=== PATIENT | female | born 2000 | race Caucasian/White ===

== ENCOUNTER 2018-09-11 22:33 | Emergency (ER) | payer BC ==
[~2018-09-11] VITALS: Ht 180.3 cm; Wt 127.0 kg
[2018-09-11] MEDS ORDERED: FAMC500 PO (23:21)
== END 2018-09-11 23:38 | disposition home or self-care (01) ==
LOC: ER 22:33
DX: G51.0 Bell's palsy (principal)
CPT/HCPCS: 99283

== ENCOUNTER → 2020-08-07 | Outpatient (CLI) | payer BC ==
[~2020-08-07] MED LIST: FAMC500 PO
== END | disposition home or self-care (01) ==
LOC: LAB SHORT 16:52 → LAB 16:52
DX: J20.9 Acute bronchitis, unspecified (principal); Z20.828 Contact with and (suspected) exposure to other viral communicable diseases
CPT/HCPCS: U0003

== ENCOUNTER → 2022-05-24 | Outpatient (CLI) | payer BC | END | disposition home or self-care (01) | LOC: LAB SHORT 11:20 → LAB 11:20 | DX: A08.39 Other viral enteritis (principal) | CPT/HCPCS: 87086 ==

== ENCOUNTER 2022-06-30 12:57 | Emergency (ER) | payer BC, OTHER ==
[~2022-06-30] VITALS: Ht 180.3 cm; Wt 120.2 kg
[2022-06-30 14:20] LABS: BASOPHILS ABSOLUTE AUTO 0.03 K/mm3 (0.00-0.23); BASOPHILS PERCENT AUTO 0 % (0-2); EOSINOPHILS ABSOLUTE AUTO 0.19 K/mm3 (0.00-0.68); EOSINOPHILS PERCENT AUTO 2 % (0-6); Hematocrit 38.5 % (33.0-51.0); Hemoglobin 13.5 g/dL (11.5-16.0); IMMATURE GRAN ABSOLUTE AUTO 0.03 K/mm3 (0.00-0.10); IMMATURE GRAN PERCENT AUTO 0 % (0-1); LYMPHOCYTES ABSOLUTE AUTO 1.79 K/mm3 (0.84-5.20); LYMPHOCYTES PERCENT AUTO 19 % (21-46); MONOCYTES ABSOLUTE AUTO 0.79 K/mm3 (0.16-1.47); MONOCYTES PERCENT AUTO 9 % (4-13); Mean Corpuscular HGB 30.7 pg (26.0-34.0); Mean Corpuscular HGB Conc 35.1 g/dL (31.5-36.5); Mean Corpuscular Volume 88 fL (80-100); NEUTROPHILS ABSOLUTE AUTO 6.39 K/mm3 (1.96-9.15); NEUTROPHILS PERCENT AUTO 69 % (41-73); Platelet Count 180 K/mm3 (150-400); RDW Coefficient Variation 12.2 % (11.7-14.2); RDW Standard Deviation 39.4 fL (35.1-46.3); White Blood Cell Count 9.22 K/mm3 (4.00-11.30)
[2022-06-30 14:42] LABS: Albumin, Blood 3.4 g/dL (3.4-5.0); Albumin/Globulin Ratio 1.1 (0.8-1.8); Bilirubin, Total 0.3 mg/dL (0.1-1.0); Bun/Creatinine Ratio 11.5 (12.0-20.0); Calcium, Blood 8.7 mg/dL (8.5-10.1); Creatinine, Blood 0.61 mg/dL (0.40-1.00); Globulin, Blood 3.2 g/dL (2.2-4.0); Potassium, Blood 3.7 mmol/L (3.5-5.5); Total Protein, Blood 6.6 g/dL (6.4-8.2)
[2022-06-30 15:39] LABS: Source, Urine Clean Catch
[2022-06-30 16:05] LABS: Appearance, Urine Cloudy (Clear); Bilirubin, Urine Neg (Neg); Blood, Urine 5+ (Neg); Color, Urine Red (P-Yellow); Glucose Qualitative, Urine Neg (Neg); Ketones, Urine Neg (Neg); Leukocyte Esterase, Urine 2+ (Neg); Nitrite, Urine Neg (Neg); Protein, Urine 3+ (Neg); Urobilinogen, Urine 1+ (Normal)
[2022-06-30 17:00] LABS: Bacteria Few /hpf; Red Blood Cells, Urine TNTC /hpf (0-2); Squamous Epithelial Cells Few /hpf (Few)
== END 2022-06-30 16:50 | disposition home or self-care (01) ==
LOC: ER 12:57
PROVIDERS: Physician Assistant
DX: O20.0 Threatened abortion (principal); Z3A.11 11 weeks gestation of pregnancy; Z79.899 Other long term (current) drug therapy
CPT/HCPCS: 36415; 76801; 80053; 81001; 84702; 85025; 86900; 86901; 87086; 99284-25

== ENCOUNTER → 2022-07-07 | Outpatient (CLI) | payer BC, OTHER ==
[2022-07-09 01:10] LABS: CHLAMYDIA TRACHOMATIS, NAA Negative (Negative)
== END | disposition home or self-care (01) ==
LOC: LAB 10:51 → LAB SHORT 10:51
PROVIDERS: Advanced Practice Midwife
DX: Z01.419 Encounter for gynecological examination (general) (routine) without abnormal findings (principal); Z11.3 Encounter for screening for infections with a predominantly sexual mode of transmission
CPT/HCPCS: 87491; 87591; G0123

== ENCOUNTER → 2022-08-03 | Outpatient (CLI) | payer BC, OTHER ==
[2022-08-03 14:24] LABS: Source, Urine Clean Catch
[2022-08-03 15:28] LABS: Appearance, Urine Clear (Clear); Bilirubin, Urine Neg (Neg); Blood, Urine Neg (Neg); Color, Urine Amber (P-Yellow); Glucose Qualitative, Urine Neg (Neg); Ketones, Urine Neg (Neg); Leukocyte Esterase, Urine 2+ (Neg); Nitrite, Urine Neg (Neg); Protein, Urine 1+ (Neg); Urobilinogen, Urine 1+ (Normal)
[2022-08-03 15:42] LABS: Bacteria Mod /hpf; Mucus Light (0-Heavy); Red Blood Cells, Urine 0-2 /hpf (0-2); Squamous Epithelial Cells Few /hpf (Few); Yeast/Fungi Urine Few /hpf
== END | disposition home or self-care (01) ==
LOC: LAB SHORT 14:22 → LAB 14:22
PROVIDERS: Advanced Practice Midwife
DX: O23.41 Unspecified infection of urinary tract in pregnancy, first trimester (principal)
CPT/HCPCS: 81001; 87086

== ENCOUNTER 2022-08-28 16:10 | Inpatient (IN) | payer BC, OTHER ==
[~2022-08-28] VITALS: Ht 177.8 cm; Wt 117.9 kg
[2022-08-28 17:12] LABS: Source, Urine Clean Catch
[2022-08-28 17:20] LABS: Appearance, Urine Cloudy (Clear); Blood, Urine 5+ (Neg); Color, Urine Amber (P-Yellow); Glucose Qualitative, Urine Neg (Neg); Ketones, Urine 4+ (Neg); Leukocyte Esterase, Urine 2+ (Neg); Nitrite, Urine Pos (Neg); Protein, Urine 3+ (Neg); Specific Gravity, Urine 1.025 (1.003-1.022); Urobilinogen, Urine 1+ (Normal)
[2022-08-28 17:21] LABS: BASOPHILS ABSOLUTE AUTO 0.02 K/mm3 (0.00-0.23); BASOPHILS PERCENT AUTO 0 % (0-2); EOSINOPHILS ABSOLUTE AUTO 0.05 K/mm3 (0.00-0.68); EOSINOPHILS PERCENT AUTO 0 % (0-6); Hemoglobin 13.1 g/dL (11.5-16.0); IMMATURE GRAN ABSOLUTE AUTO 0.07 K/mm3 (0.00-0.10); IMMATURE GRAN PERCENT AUTO 1 % (0-1); LYMPHOCYTES ABSOLUTE AUTO 0.81 K/mm3 (0.84-5.20); LYMPHOCYTES PERCENT AUTO 7 % (21-46); MONOCYTES PERCENT AUTO 5 % (4-13); Mean Corpuscular HGB 31.5 pg (26.0-34.0); Mean Corpuscular HGB Conc 35.4 g/dL (31.5-36.5); Mean Corpuscular Volume 89 fL (80-100); Mean Platelet Volume 10.2 fL (9.1-12.4); NEUTROPHILS PERCENT AUTO 87 % (41-73); Platelet Count 206 K/mm3 (150-400); RDW Coefficient Variation 12.9 % (11.7-14.2); RDW Standard Deviation 41.5 fL (35.1-46.3); Red Blood Cell Count 4.16 M/mm3 (3.80-5.20); White Blood Cell Count 11.85 K/mm3 (4.00-11.30)
[2022-08-28 17:39] LABS: Albumin, Blood 3.1 g/dL (3.4-5.0); Albumin/Globulin Ratio 0.8 (0.8-1.8); Bun/Creatinine Ratio 16.4 (12.0-20.0); Calcium, Blood 8.9 mg/dL (8.5-10.1); Creatinine, Blood 0.43 mg/dL (0.40-1.00); Globulin, Blood 3.8 g/dL (2.2-4.0); Potassium, Blood 3.5 mmol/L (3.5-5.5); Total Protein, Blood 6.9 g/dL (6.4-8.2)
[2022-08-28 17:40] LABS: Bilirubin, Urine 1+ (Neg)
[2022-08-28 17:43] LABS: Bacteria Mod /hpf; Red Blood Cells, Urine TNTC /hpf (0-2); Squamous Epithelial Cells Rare /hpf (Few)
--- NOTE | 2022-08-28 18:35 | NUR ---
IV IN RAC PLACED BY ER
[2022-08-28 21:03] LABS: Candida species (DNA Probe) Negative (NEGATIVE); G. vaginalis (DNA Probe) Negative (NEGATIVE); T. vaginalis (DNA Probe) Negative (NEGATIVE)
--- NOTE | 2022-08-28 22:30 | NUR ---
PT FELT FAINT IN SHOWER. PT WAS ASSISSTED INTO A SITTED POSITION IN THE TUB. ONCE SET DOWN PT FELT BETTER AFTER A FEW MINUTES AND WAS ABLE TO TRANSFER SELF TO WHEELCHAIR AND THEN TRANSFER SELF TO BED FROM WHEELCHAIR WITHOUT COMPLICATION. GREER RUVALCABA IN HOUSE. DISCUSSED QBL AND SYMTOMATIC WITH SHOWER, ORDERS TO INITIATE OBSTETRICAL HEMORRHAGE PROTOCOL. STAGE 2 AT THIS TIME.
--- NOTE | 2022-08-28 23:00 | NUR ---
PT HAS HAD 2033ML BLOOD LOSS, STAGE 3 PPH. NO ACTIVE BLEEDING AT THIS TIME, VSS. ORDERS RECEIVED FOR PPH PROTOCOL, WILL PLACE ADDITIONAL IV AND INITIATE PROTOCOL ORDERS.
[2022-08-28 23:40] LABS: BASOPHILS ABSOLUTE AUTO 0.02 K/mm3 (0.00-0.23); BASOPHILS PERCENT AUTO 0 % (0-2); EOSINOPHILS ABSOLUTE AUTO 0.01 K/mm3 (0.00-0.68); EOSINOPHILS PERCENT AUTO 0 % (0-6); Hematocrit 32.1 % (33.0-51.0); Hemoglobin 11.6 g/dL (11.5-16.0); IMMATURE GRAN ABSOLUTE AUTO 0.07 K/mm3 (0.00-0.10); IMMATURE GRAN PERCENT AUTO 1 % (0-1); LYMPHOCYTES ABSOLUTE AUTO 0.82 K/mm3 (0.84-5.20); LYMPHOCYTES PERCENT AUTO 6 % (21-46); MONOCYTES ABSOLUTE AUTO 0.44 K/mm3 (0.16-1.47); MONOCYTES PERCENT AUTO 3 % (4-13); Mean Corpuscular HGB 31.4 pg (26.0-34.0); Mean Corpuscular HGB Conc 36.1 g/dL (31.5-36.5); Mean Corpuscular Volume 87 fL (80-100); Mean Platelet Volume 10.5 fL (9.1-12.4); NEUTROPHILS ABSOLUTE AUTO 12.04 K/mm3 (1.96-9.15); NEUTROPHILS PERCENT AUTO 90 % (41-73); Platelet Count 225 K/mm3 (150-400); RDW Coefficient Variation 12.7 % (11.7-14.2); RDW Standard Deviation 40.2 fL (35.1-46.3)
[2022-08-29 00:54] LABS: Prothrombin Time Results 10.5 Sec (9.7-11.5)
[2022-08-29 07:21] LABS: BASOPHILS ABSOLUTE AUTO 0.02 K/mm3 (0.00-0.23); BASOPHILS PERCENT AUTO 0 % (0-2); EOSINOPHILS ABSOLUTE AUTO 0.06 K/mm3 (0.00-0.68); EOSINOPHILS PERCENT AUTO 1 % (0-6); Hematocrit 25.9 % (33.0-51.0); Hemoglobin 9.6 g/dL (11.5-16.0); IMMATURE GRAN ABSOLUTE AUTO 0.04 K/mm3 (0.00-0.10); IMMATURE GRAN PERCENT AUTO 0 % (0-1); LYMPHOCYTES ABSOLUTE AUTO 1.61 K/mm3 (0.84-5.20); LYMPHOCYTES PERCENT AUTO 18 % (21-46); MONOCYTES ABSOLUTE AUTO 0.82 K/mm3 (0.16-1.47); MONOCYTES PERCENT AUTO 9 % (4-13); Mean Corpuscular HGB 31.9 pg (26.0-34.0); Mean Corpuscular HGB Conc 37.1 g/dL (31.5-36.5); Mean Corpuscular Volume 86 fL (80-100); Mean Platelet Volume 10.5 fL (9.1-12.4); NEUTROPHILS ABSOLUTE AUTO 6.47 K/mm3 (1.96-9.15); NEUTROPHILS PERCENT AUTO 72 % (41-73); Platelet Count 219 K/mm3 (150-400); RDW Coefficient Variation 12.9 % (11.7-14.2); Red Blood Cell Count 3.01 M/mm3 (3.80-5.20); White Blood Cell Count 9.02 K/mm3 (4.00-11.30)
[2022-08-29 08:28] LABS: Albumin, Blood 2.6 g/dL (3.4-5.0); Albumin/Globulin Ratio 0.8 (0.8-1.8); Bilirubin, Direct 0.2 mg/dL (0.0-0.3); Bilirubin, Indirect 0.6 mg/dL (0.1-0.7); Bilirubin, Total 0.8 mg/dL (0.1-1.0); Globulin, Blood 3.2 g/dL (2.2-4.0); Total Protein, Blood 5.8 g/dL (6.4-8.2)
--- NOTE | 2022-08-29 11:00 | NUR ---
SPOKE WITH VANESSA BURNS REGARDING PT BEREAVEMENT OF 19.6 WEEK DEMISE OF BABY BOY. NOT APPROPRIATE TIMING FOR [place] PPDEPRESSION SCALE AT THIS TIME. FOLLOW-UP APPOINTMENT WITH ISMAEL POPE CNM CONFIRMED FOR 09/08/22 @9160. PT WILL FOLLOW-UP WITH [facility] IN 2 DAYS WELL. COMMUNITY RESOURCES AND BEREAVEMENT SUPPORT REVIEWED AND GIVEN TO PATIENT.
[2022-08-31 04:53] LABS: CHLAMYDIA TRACHOMATIS, NAA Negative (Negative)
== END 2022-08-29 10:48 | disposition home or self-care (01) | DRG 806 ==
LOC: ER 16:10 → BC 17:37
PROVIDERS: Obstetrics & Gynecology; Student in an Organized Health Care Education/Training Program; ADMIT Advanced Practice Midwife
PROC: 10E0XZZ Delivery of Products of Conception, External Approach (ICD-10-PCS; principal; 2022-08-28)
PROC: 30233N1 Transfusion of Nonautologous Red Blood Cells into Peripheral Vein, Percutaneous Approach (ICD-10-PCS; 2022-08-28)
DX: O34.32 Maternal care for cervical incompetence, second trimester (principal); D62 Acute posthemorrhagic anemia; Z37.0 Single live birth; R94.5 Abnormal results of liver function studies; R82.90 Unspecified abnormal findings in urine; O99.344 Other mental disorders complicating childbirth; F43.21 Adjustment disorder with depressed mood; Z3A.19 19 weeks gestation of pregnancy; Z79.2 Long term (current) use of antibiotics; Z87.891 Personal history of nicotine dependence
CPT/HCPCS: 36415; 76816; 80053; 80076; 81001; 83690; 85025; 85384; 85610; 85730; 86850; 86900; 86901; 87086; 87480; 87491; 87510; 87591; 87660; 88307; 88313; 99285-25; J1885; J2210; J2270; J2590; J2916; J7120

== ENCOUNTER 2022-10-17 18:03 | Observation (INO) | payer BC, OTHER ==
[~2022-10-17] VITALS: Ht 180.3 cm; Wt 121.1 kg
[~2022-10-17 18:03] MED LIST changes: +AZIT500 PO; +MEDR10 PO; +Ventolin/Prove6.7 GM
[2022-10-17 18:41] LABS: BASOPHILS ABSOLUTE AUTO 0.08 K/mm3 (0.00-0.23); BASOPHILS PERCENT AUTO 1 % (0-2); EOSINOPHILS ABSOLUTE AUTO 0.47 K/mm3 (0.00-0.68); EOSINOPHILS PERCENT AUTO 4 % (0-6); Hematocrit 37.8 % (33.0-51.0); Hemoglobin 12.4 g/dL (11.5-16.0); IMMATURE GRAN ABSOLUTE AUTO 0.03 K/mm3 (0.00-0.10); IMMATURE GRAN PERCENT AUTO 0 % (0-1); LYMPHOCYTES ABSOLUTE AUTO 3.32 K/mm3 (0.84-5.20); LYMPHOCYTES PERCENT AUTO 30 % (21-46); MONOCYTES ABSOLUTE AUTO 0.87 K/mm3 (0.16-1.47); MONOCYTES PERCENT AUTO 8 % (4-13); Mean Corpuscular HGB 27.6 pg (26.0-34.0); Mean Corpuscular HGB Conc 32.8 g/dL (31.5-36.5); Mean Corpuscular Volume 84 fL (80-100); Mean Platelet Volume 11.2 fL (9.1-12.4); NEUTROPHILS ABSOLUTE AUTO 6.19 K/mm3 (1.96-9.15); NEUTROPHILS PERCENT AUTO 57 % (41-73); Platelet Count 345 K/mm3 (150-400); RDW Coefficient Variation 12.7 % (11.7-14.2); RDW Standard Deviation 38.8 fL (35.1-46.3); Red Blood Cell Count 4.49 M/mm3 (3.80-5.20); White Blood Cell Count 10.96 K/mm3 (4.00-11.30)
[2022-10-17 19:21] LABS: Albumin, Blood 4.2 g/dL (3.4-5.0); Albumin/Globulin Ratio 1.1 (0.8-1.8); Bilirubin, Total 0.5 mg/dL (0.1-1.0); Calcium, Blood 9.4 mg/dL (8.5-10.1); Creatinine, Blood 0.77 mg/dL (0.40-1.00); Globulin, Blood 3.9 g/dL (2.2-4.0); Potassium, Blood 3.4 mmol/L (3.5-5.5); Total Protein, Blood 8.1 g/dL (6.4-8.2)
[2022-10-17] MEDS ORDERED: MEDR10 PO (21:27)
--- NOTE | 2022-10-18 03:55 | NUR ---
PT ARRIVAL TO UNIT AT APPROX 0330. ALERT AND ORIENTED. VSS. PT AMBULATED INDEP TO BATHROOM. SMALL VOID + SMALL AMOUNT OF VAGINAL BLEEDING. PT DENIES NEED FOR PAIN MEDICATIONS. LUNGS CLEAR. ARNULFO SIPS OF WATER AND PO. ORIENTED TO ROOM AND CALL LIGHT.
[2022-10-18 04:46] LABS: BASOPHILS ABSOLUTE AUTO 0.03 K/mm3 (0.00-0.23); BASOPHILS PERCENT AUTO 0 % (0-2); EOSINOPHILS ABSOLUTE AUTO 0.03 K/mm3 (0.00-0.68); EOSINOPHILS PERCENT AUTO 0 % (0-6); Hematocrit 31.1 % (33.0-51.0); Hemoglobin 10.6 g/dL (11.5-16.0); IMMATURE GRAN ABSOLUTE AUTO 0.05 K/mm3 (0.00-0.10); IMMATURE GRAN PERCENT AUTO 0 % (0-1); LYMPHOCYTES ABSOLUTE AUTO 1.05 K/mm3 (0.84-5.20); LYMPHOCYTES PERCENT AUTO 9 % (21-46); MONOCYTES ABSOLUTE AUTO 0.19 K/mm3 (0.16-1.47); MONOCYTES PERCENT AUTO 2 % (4-13); Mean Corpuscular HGB 28.3 pg (26.0-34.0); Mean Corpuscular HGB Conc 34.1 g/dL (31.5-36.5); Mean Corpuscular Volume 83 fL (80-100); Mean Platelet Volume 10.7 fL (9.1-12.4); NEUTROPHILS ABSOLUTE AUTO 10.46 K/mm3 (1.96-9.15); NEUTROPHILS PERCENT AUTO 89 % (41-73); Platelet Count 244 K/mm3 (150-400); RDW Coefficient Variation 12.9 % (11.7-14.2); Red Blood Cell Count 3.75 M/mm3 (3.80-5.20); White Blood Cell Count 11.81 K/mm3 (4.00-11.30)
[2022-10-18] MEDS ORDERED: IBUP400 PO (09:10)
--- NOTE | 2022-10-18 09:17 | NUR ---
DISCHARGE VSS ON RA. PATIENT DENIES PAIN, DENIES N/V. TOELRATING REGULAR PO DIET WELL. VERY MINIMAL TO SCANT VAGINAL BLEEDING. VOIDING W/O DIFFICULTY, AMBULATING WELL WITHIN ROOM. DISCUSSED DISCHARGE INSTRUCTIONS & SENT WITH PATIENT. REMOVED BOTH IV'S IN LEFT ARM, GAUZE & COBAN PLACED. PATIENT DECLINED W/C, AMBULATED OUT WITH FAMILY MEMBER.
== END 2022-10-18 10:15 | disposition home or self-care (01) ==
LOC: ER 18:03 → SURS 10-18 03:34
PROVIDERS: Physician Assistant; ADMIT Obstetrics & Gynecology
PROC: 10D17ZZ Extraction of Products of Conception, Retained, Via Natural or Artificial Opening (ICD-10-PCS; principal; 2022-10-18)
DX: O03.4 Incomplete spontaneous abortion without complication (principal); J40 Bronchitis, not specified as acute or chronic; D62 Acute posthemorrhagic anemia; Z72.0 Tobacco use
CPT/HCPCS: 76830; 76856; 80053; 85025; 86850; 86900; 86901; 96360; 96361; 99284-25; A9270; J1100; J1885; J2210; J2405; J2704; J3010; J7030

== ENCOUNTER → 2024-07-12 | Outpatient (CLI) | payer BC, OTHER ==
[~2024-07-12] MED LIST changes: +IBUP400 PO
== END | disposition home or self-care (01) ==
LOC: LAB 12:03 → LAB SHORT 12:03
DX: O09.91 Supervision of high risk pregnancy, unspecified, first trimester (principal)
CPT/HCPCS: 87081; 87150

== ENCOUNTER 2024-07-26 06:30 | Inpatient (IN) | payer BC, OTHER ==
[~2024-07-26] VITALS: Ht 177.8 cm; Wt 125.0 kg
[2024-07-26] VITALS (16 sets, daily range): BP systolic 123–152; BP diastolic 58–77
[2024-07-26] MEDS ORDERED: ePHEDrine Sulfate 50 MG/ML 1ML Injection XX PRN (07:10)
[2024-07-26] MEDS ORDERED: OXYTOCIN/RINGER'S LACTATE 500 ML IV SCH (07:10)
[2024-07-26] MEDS ORDERED: Oxytocin 10 Unit / ML Vial IM PRN (07:10)
[2024-07-26] MEDS ORDERED: Misoprostol 200 MCG Tab BC PRN (07:10)
[2024-07-26] MEDS ORDERED: Carboprost Tromethamine 250 MCG/ML 1ML Amp IM PRN ×2 (07:10→19:50)
[2024-07-26] MEDS ORDERED: FentaNYL 2mcg/ml-Bup 0.1% Epd 250 ML EPI PRN (07:10)
[2024-07-26] MEDS ORDERED: Misoprostol 200 MCG Tab PR PRN ×2 (07:10→19:50)
[2024-07-26] MEDS ORDERED: OXYTOCIN/RINGER'S LACTATE 500 ML IV PRN (07:10)
[2024-07-26] MEDS ORDERED: Lactated Ringer's 1,000 ML IV PRN (07:10)
[2024-07-26] MEDS ORDERED: Lactated Ringer's 1,000 ML IV SCH ×4 (07:10→19:45)
[2024-07-26] MEDS ORDERED: Ondansetron HCl 2 MG / ML 2ML Vial IV PRN (07:10)
[2024-07-26] MEDS ORDERED: Methylergonovine Maleate 0.2MG / ML 1ML Amp IM PRN ×2 (07:10→19:50)
[2024-07-26] MEDS ORDERED: Acetaminophen 500 MG Tab PO PRN (07:15)
[2024-07-26] MEDS ORDERED: Calcium Carbonate 500 MG Tab Chew PO PRN (07:15)
[2024-07-26] MEDS ORDERED: FentaNYL Citrate 50 MCG/ML 2 ML Injection IV PRN (07:15)
[2024-07-26] MEDS ORDERED: Tranexamic Acid 100 ML IV SCH (07:20)
[2024-07-26] MEDS ORDERED: ASPI81CH PO (08:41)
[2024-07-26] MEDS ORDERED: SERT50 PO (08:43)
[2024-07-26] MEDS ORDERED: PRENATAL TABLE1 EAC2 (08:44)
[2024-07-26 09:08] LABS: BASOPHILS ABSOLUTE AUTO 0.03 K/mm3 (0.00-0.23); BASOPHILS PERCENT AUTO 0 % (0-2); EOSINOPHILS ABSOLUTE AUTO 0.15 K/mm3 (0.00-0.68); EOSINOPHILS PERCENT AUTO 2 % (0-6); Hematocrit 33.2 % (33.0-51.0); Hemoglobin 10.5 g/dL (11.5-16.0); IMMATURE GRAN ABSOLUTE AUTO 0.07 K/mm3 (0.00-0.10); IMMATURE GRAN PERCENT AUTO 1 % (0-1); LYMPHOCYTES ABSOLUTE AUTO 1.42 K/mm3 (0.84-5.20); LYMPHOCYTES PERCENT AUTO 18 % (21-46); MONOCYTES ABSOLUTE AUTO 0.59 K/mm3 (0.16-1.47); MONOCYTES PERCENT AUTO 7 % (4-13); Mean Corpuscular HGB 24.5 pg (26.0-34.0); Mean Corpuscular HGB Conc 31.6 g/dL (31.5-36.5); Mean Corpuscular Volume 77 fL (80-100); Mean Platelet Volume 10.7 fL (9.1-12.4); NEUTROPHILS ABSOLUTE AUTO 5.73 K/mm3 (1.96-9.15); NEUTROPHILS PERCENT AUTO 72 % (41-73); Platelet Count 174 K/mm3 (150-400); RDW Coefficient Variation 14.1 % (11.7-14.2); RDW Standard Deviation 39.3 fL (35.1-46.3); Red Blood Cell Count 4.29 M/mm3 (3.80-5.20); White Blood Cell Count 7.99 K/mm3 (4.00-11.30)
[2024-07-26] MEDS ORDERED: NS 100 ML IV ONE (14:43)
[2024-07-26] MEDS ORDERED: FLU VACC TS2024-25(6MOS UP)/PF 45 MCG/0.5 ML SYRINGE IM ONE (19:45)
[2024-07-26] MEDS ORDERED: Ibuprofen 400 MG Tab PO PRN (19:45)
[2024-07-26] MEDS ORDERED: Witch Hazel/Glycerin PADS TOP PRN (19:45)
[2024-07-26] MEDS ORDERED: Ketorolac Tromethamine 30mg Vial IV PRN (19:50)
[2024-07-26] MEDS ORDERED: Acetaminophen 325 MG TABLET PO PRN (19:50)
[2024-07-26] MEDS ORDERED: Measles/Mumps/Rubella Vaccine 0.5 ML Vial SC ONE (19:50)
[2024-07-26] MEDS ORDERED: Lanolin Cream TOP PRN (19:55)
[2024-07-26] MEDS ORDERED: Oxytocin 10 Unit / ML Vial IM ONE (19:55)
[2024-07-26] MEDS ORDERED: Benzocaine/Benzethon Topical Anesthetic Spray 78GM TOP PRN (20:00)
[2024-07-26] MEDS ORDERED: Tranexamic Acid 100 ML IV PRN (20:05)
[2024-07-27] VITALS (7 sets, daily range): BP systolic 116–145; BP diastolic 58–77
[2024-07-27 06:26] LABS: BASOPHILS ABSOLUTE AUTO 0.04 K/mm3 (0.00-0.23); BASOPHILS PERCENT AUTO 0 % (0-2); EOSINOPHILS ABSOLUTE AUTO 0.06 K/mm3 (0.00-0.68); EOSINOPHILS PERCENT AUTO 1 % (0-6); Hematocrit 31.1 % (33.0-51.0); IMMATURE GRAN ABSOLUTE AUTO 0.09 K/mm3 (0.00-0.10); IMMATURE GRAN PERCENT AUTO 1 % (0-1); LYMPHOCYTES ABSOLUTE AUTO 1.73 K/mm3 (0.84-5.20); LYMPHOCYTES PERCENT AUTO 14 % (21-46); MONOCYTES ABSOLUTE AUTO 0.96 K/mm3 (0.16-1.47); MONOCYTES PERCENT AUTO 8 % (4-13); Mean Corpuscular HGB 24.5 pg (26.0-34.0); Mean Corpuscular HGB Conc 32.2 g/dL (31.5-36.5); Mean Corpuscular Volume 76 fL (80-100); Mean Platelet Volume 10.4 fL (9.1-12.4); NEUTROPHILS ABSOLUTE AUTO 9.78 K/mm3 (1.96-9.15); NEUTROPHILS PERCENT AUTO 77 % (41-73); Platelet Count 180 K/mm3 (150-400); RDW Coefficient Variation 14.2 % (11.7-14.2); RDW Standard Deviation 38.6 fL (35.1-46.3); Red Blood Cell Count 4.08 M/mm3 (3.80-5.20); White Blood Cell Count 12.66 K/mm3 (4.00-11.30)
[2024-07-27] MEDS ORDERED: Prenatal Vit/FE Fumarate/FA 1 Tab PO SCH (09:00)
[2024-07-27] MEDS ORDERED: Labetalol HCL 100 MG TAB PO SCH (14:05)
[2024-07-27] MEDS ORDERED: LABE200 PO (14:27)
[2024-07-27] MEDS ORDERED: FEROSUL325 M1 PO (14:30)
[2024-07-27] MEDS ORDERED: Measles/Mumps/Rubella Vaccine 0.5 ML Vial SC ONE (16:45)
--- NOTE | 2024-07-27 19:27 | NUR ---
RN MATCHED AND VERIFIED BANDS WITH MOB. RN WATCHED MOB PLACE IN CARSEAT AND WALKED MOB, FOB, , AND OTHER CLOSE FAMILY MEMBERS OUT TO CAR. RN WATCHED MOB & FOB PLACE IN CARSEAT INTO CAR.
== END 2024-07-27 19:21 | disposition home or self-care (01) | DRG 806 ==
LOC: OBS 06:30 → BC 06:30 → OBS 06:41 → BC 06:42
PROVIDERS: ADMIT Obstetrics & Gynecology
PROC: 10E0XZZ Delivery of Products of Conception, External Approach (ICD-10-PCS; principal; 2024-07-26)
PROC: 0KQM0ZZ Repair Perineum Muscle, Open Approach (ICD-10-PCS; 2024-07-26)
PROC: 10907ZC Drainage of Amniotic Fluid, Therapeutic from Products of Conception, Via Natural or Artificial Opening (ICD-10-PCS; 2024-07-26)
PROC: 0UQKXZZ Repair Hymen, External Approach (ICD-10-PCS; 2024-07-26)
PROC: 3E0R3BZ Introduction of Anesthetic Agent into Spinal Canal, Percutaneous Approach (ICD-10-PCS; 2024-07-26)
PROC: 00HU33Z Insertion of Infusion Device into Spinal Canal, Percutaneous Approach (ICD-10-PCS; 2024-07-26)
DX: O13.4 Gestational [pregnancy-induced] hypertension without significant proteinuria, complicating childbirth (principal); D62 Acute posthemorrhagic anemia; Z37.0 Single live birth; O99.12 Other diseases of the blood and blood-forming organs and certain disorders involving the immune mechanism complicating childbirth; O90.81 Anemia of the puerperium; Z3A.37 37 weeks gestation of pregnancy; O99.324 Drug use complicating childbirth; O99.214 Obesity complicating childbirth; O99.344 Other mental disorders complicating childbirth; D69.6 Thrombocytopenia, unspecified; O99.334 Smoking (tobacco) complicating childbirth; F17.210 Nicotine dependence, cigarettes, uncomplicated; F12.90 Cannabis use, unspecified, uncomplicated; F41.8 Other specified anxiety disorders; Z79.899 Other long term (current) drug therapy; Z79.82 Long term (current) use of aspirin
CPT/HCPCS: 36415; 85025; 86850; 86900; 86901; 90471; 90707; A9270; J1885; J3010